=== PATIENT | male | born 1980 | race African-American/Black ===

== ENCOUNTER 2019-02-20 14:09 | Emergency (ER) | payer BC ==
[~2019-02-20] VITALS: Ht 175.3 cm; Wt 125.8 kg
[2019-02-20 14:14] VITALS: Ht 175.3 cm; Wt 125.8 kg
[2019-02-20 15:01] LABS: CALCIUM 9.2 mg/dL (8.5-10.1); CARBON DIOXIDE 25.1 mmol/L (21-32); CHLORIDE SERUM 105 mmol/L (98-107); CREATININE SERUM 1.1 mg/dL (0.7-1.3); GFR1 > 60 mL/min; GLUCOSE SERUM 89 mg/dL (74-106); POTASSIUM SERUM 3.2 mmol/L (3.5-5.1); SODIUM SERUM 140 mmol/L (136-145)
[2019-02-20 15:05] LABS: ALBUMIN 3.8 g/dL (3.4-5.0); ALKALINE PHOSPHATASE 103 U/L (46-116); ALT/SGPT 29 U/L (16-63); AST/SGOT 10 U/L (15-37); BILIRUBIN TOTAL 0.38 mg/dL (0.20-1.00)
[2019-02-20 15:07] LABS: TOTAL PROTEIN, SERUM 8.4 g/dL (6.4-8.2)
[2019-02-20 15:10] LABS: BASOPHIL % 0.2 % (0-2); PLATELET COUNT 334 x10^3mcL (130-400); RED CELL DISTRIBUTION WIDTH 14.2 % (11.5-14.5)
[2019-02-20 16:47] VITALS: BP 159/90
== END 2019-02-20 16:47 | disposition home or self-care (01) ==
LOC: ED 14:09
PROVIDERS: Emergency Medicine
DX: L03.115 Cellulitis of right lower limb (principal); J45.909 Unspecified asthma, uncomplicated; Z98.890 Other specified postprocedural states; Z88.0 Allergy status to penicillin
CPT/HCPCS: J0696; Q0092